=== PATIENT | female | born 1980 | race Caucasian/White ===

== ENCOUNTER 2022-06-28 10:57 | Emergency (ER) | payer OTHER ==
[~2022-06-28] VITALS: Ht 167.6 cm; Wt 68.0 kg
--- NOTE | 2022-06-28 11:15 | NUR ---
AT BEDSIDE FOR EVALUATION.
--- NOTE | 2022-06-28 11:29 | NUR ---
Patient discharged to home in stable condition. Written and verbal after care instructions given. Patient verbalizes understanding of instructions. Stressed follow up or return to ER for worsening s/s.
== END 2022-06-28 11:34 | disposition home or self-care (01) ==
LOC: ER 10:57
DX: R05.9 Cough, unspecified (principal)
CPT/HCPCS: A4663